=== PATIENT | male | born 1935 | race Caucasian/White ===

== ENCOUNTER 2023-04-09 02:23 | Emergency (ER) | payer MEDICARE, SELFPAY ==
[2023-04-09 02:25] VITALS: BP 147/63; PULSE 91; RESP 16; TEMP 36.7; O2SAT 99
[2023-04-09] MEDS: OXYMETAZOLINE HCL 0.05% NAS 15 ML BTL (*BKC) 1 SPRAY (02:42)
[2023-04-09 03:11] LABS: Basophils Absolute Auto 0.1 K/mm3 (0.0-0.1); Basophils Percent Auto 0.9 % (0.2-1.2); Eosinophils Absolute Auto 0.5 K/mm3 (0-0.3); Eosinophils Percent Auto 5.2 % (0-4.4); Hematocrit 33.2 % (42.0-52.0); Hemoglobin 10.9 g/dL (14.0-18.0); Immature Granulocyte Absolute 0.03 K/mm3 (0.00-0.031); Immature Granulocyte Percent A 0.3 % (0-0.5); Lymphocytes Absolute Auto 3.28 K/mm3 (0.9-3.2); Lymphocytes Percent Auto 33.1 % (18.3-44.2); Mean Corpuscular HGB Conc 32.8 g/dl (32-36); Mean Corpuscular Hemoglobin 31.1 pg (26-34); Mean Corpuscular Volume 94.9 fl (80-100); Mean Platelet Volume 9.1 fl (7.4-10.4); Monocytes Absolute Auto 0.8 K/mm3 (0.1-0.6); Neutrophils Absolute Auto 5.2 K/mm3 (1.3-6.7); Neutrophils Percent Auto 52.5 % (45.5-73.1); Platelet Count Result 388 k/mm3 (150-375); Red Cell Distribution Width 13.6 % (11.5-14.5); White Blood Count 9.9 K/mm3 (4.5-10.0)
--- NOTE | 2023-04-09 03:23 | ED.GENADULT ---
HPI - General Adult General Chief complaint: Epistaxis Stated complaint: nose bleed Time Seen by Provider: 04/09/23 02:32 History of Present Illness HPI narrative: This is an 87-year-old male presenting ED with chief complaint of epistaxis. Patient has been having intermittent nosebleeds for the last 3 days. His daughter has been able to control them with Afrin and direct pressure. However as this has been going on for 3 days she eventually came the emergency department for re-evaluation. patient is not on blood thinners. Denies trauma. Denies shortness of breath dizziness lightheadedness fatigue or chest pain. Related Data Home Medications Medication Instructions Recorded Confirmed ascorbic acid (vitamin C) 1,000 mg 1 g PO DAILY 09/26/22 09/27/22 tablet (Vitamin C) aspirin 81 mg tablet 81 mg PO DAILY 09/26/22 09/27/22 [id number] 150 mcg-vit K1 tablet PO 09/26/22 09/27/22 30 mcg-lycop 300 mcg-lutein tablet (Centrum Men 50 Plus Minis) Allergies Allergy/AdvReac Type Severity Reaction Status Date / Time No Known Allergies Allergy Verified 04/09/23 02:43 [facility] Past Medical History Medical History Aphasia as late effect of cerebrovascular accident (2011) Chronic kidney disease, stage 3b Mixed hyperlipidemia Presbycusis, 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 Head: some blood in the mouth EYES: EOMI, NOSE: Atraumatic, visual inspection reveals no obvious excoriation in the nostrils NECK: Trachea midline RESPIRATORY: No increased rate of breathing , CTAB CARDIOVASCULAR: RRR, ABDOMINAL: Non-distended MUSCULOSKELETAl: No obvious deformities NEURO: Alert. Moving 4/4 extremities SKIN:: Warm, dry. Normal color PSYCHIATRIC: Normal affect Course Vital Signs Vital signs: Vital Signs Temperature 98.1 F 04/09/23 02:25 Pulse Rate 91 04/09/23 02:25 Respiratory Rate 16 04/09/23 02:25 Blood Pressure 147/63 H 04/09/23 02:25 Pulse Oximetry 99 04/09/23 02:25 Oxygen Delivery Room Air 04/09/23 02:25 Temperature 98.1 F 04/09/23 02:25 Pulse Rate 91 04/09/23 02:25 Respiratory Rate 16 04/09/23 02:25 Blood Pressure 147/63 H 04/09/23 02:25 Pulse Oximetry 99 04/09/23 02:25 Oxygen Delivery Room Air 04/09/23 02:25 Medical Decision Making MDM Narrative Medical decision making narrative: -Presentation: 87-year-old male presenting with epistaxis x3 days. -DDX includes but is not limited to: Digital trauma, dry mucous membranes -Co-morbidities complicating care: advanced age, hypertension, diabetes -Social determinants of health: retired, taking care of by his daughter -Hx from independent Sources: daughter @ bedside -Independent interpretation of studies: hemoglobin 10.9. -Interventions: Afrin -Shared decision making / Disposition: Bleeding was controlled using Afrin and direct pressure. Patient will be given ENT follow-up. Vital Signs Vital Signs: Vital Signs Temperature 98.1 F 04/09/23 02:25 Pulse Rate 91 04/09/23 02:25 Respiratory Rate 16 04/09/23 02:25 Blood Pressure 147/63 H 04/09/23 02:25 Pulse Oximetry 99 04/09/23 02:25 Oxygen Delivery Room Air 04/09/23 02:25 Temperature 98.1 F 04/09/23 02:25 Pulse Rate 91 04/09/23 02:25 Respiratory Rate 16 04/09/23 02:25 Blood Pressure 147/63 H 04/09/23 02:25 Pulse Oximetry 99 04/09/23 02:25 Oxygen Delivery Room Air 04/09/23 02:25 Lab Data 04/09/23 02:58 04/09/23 02:58 Labs: Lab Results 04/09/23 Range/Units 02:58 WBC 9.9 (4.5-10.0) K/mm3 RBC 3.50 L (4.6-6.20) M/mm3 Hgb 10.9 L (14.0-18.0) g/dL Hct 33.2 L (42.0-52.0) % MCV 94.9 (80-100) fl [facility]
--- NOTE | 2023-04-09 03:34 | PC.NURSE ---
Nose clamp removed per Dr. Gore's orders. Bleeding currently has subsided.
[2023-04-09 03:37] LABS: Partial Thromboplastin Time 27.4 SECONDS (22.3-36.8); Prothrombin Time 13.8 Seconds (11.1-14.7)
[2023-04-09 03:45] LABS: Alanine Aminotransferase 25 U/L (6-50); Alkaline Phosphatase 53 U/L (38-126); Anion Gap 8 mmol/L (8-16); Aspartate Amino Transferase 31 U/L (17-59); Bilirubin,Total 0.3 mg/dL (0.2-1.3); Blood Urea Nitrogen 24 mg/dL (9-20); Calcium 8.6 mg/dL (8.4-10.2); Carbon Dioxide 26 mmol/L (22-30); Chloride 106 mmol/L (98-107); Estimated CRCL calculation 42 ml/min; Estimated Glomerular Filt Rate > 60; Glucose 169 mg/dL (65-110); Potassium 3.9 mmol/L (3.4-5.0); Sodium 140 mmol/L (137-145)
[2023-04-09] MEDS: ACETAMINOPHEN 500 MG TABLET 1000 MG PO (04:51)
[2023-04-09 05:26] VITALS: BP 138/78; PULSE 77; RESP 12; O2SAT 98
== END 2023-04-09 05:30 | disposition home or self-care (01) ==
PROVIDERS: Emergency Provider Emergency Medicine; PCP Family Medicine Adolescent Medicine
DX: R04.0 Epistaxis (principal); E11.22 Type 2 diabetes mellitus with diabetic chronic kidney disease; N18.9 Chronic kidney disease, unspecified; I69.920 Aphasia following unspecified cerebrovascular disease; E78.2 Mixed hyperlipidemia; Z79.82 Long term (current) use of aspirin; Z79.84 Long term (current) use of oral hypoglycemic drugs
CPT/HCPCS: 30901; 36415; 80053; 85025; 85610; 85730; 99283; A9270